=== PATIENT | female | born 1935 | race Caucasian/White ===

== ENCOUNTER 2024-05-08 17:34 | Inpatient (IN) | payer MEDICARE, BC, SELFPAY ==
[2024-05-08 10:33] VITALS: BP 110/70
--- NOTE | 2024-05-08 15:48 | W.PN.UPDATE ---
Update Note
Progress Note Update
Patient left trimalleolar ankle fracture with underlying dropfoot
-C/D/I
-CT pending
-Plan for ORIF with IM nail and arthroscopic ankle fusion 05/10/24, please have pateint NPO on 05/10/24 after 0700
-DAYRON LINARES
-Will follow
--- NOTE | 2024-05-08 16:25 | ED.GENMED ---
History of Present Illness
General
Chief Complaint: Musculo-Skeletal Complaint
Source: patient
Exam Limitations: none
Time Seen by Provider: 05/08/24 10:54
Nursing documentation reviewed up to this point in time: agreed with
History of Present Illness
History of Present Illness:
89-year-old female presenting to the emergency department today with concerns of left ankle discomfort unable to walk since twisting her ankle while getting out of bed today after doing her bed exercises. Typically lives independently at [facility]. No additional injuries no chest pain breath numbness or weakness.
Review of Systems
Review of Systems
Allergies reviewed?: Yes
All Other Systems: ROS reviewed and negative except as documented in HPI and ROS
Phy Exam
Physical Exam
Physical Exam:
GENERAL: Alert , in no apparent distress
EYE: pupils equal and reactive
NECK: Supple, no significant adenopathy.
ENT: o/p clr, mmm.
CARDIAC: Regular rate and rhythm .
LUNGS: Clear breath sounds bilaterally, no acute respiratory distress, no wheezes/rales/rhonchi
ABDOMEN: Soft, without focal tenderness, no r/g, no cvat
NEUROLOGICAL: Alert and oriented, no focal neuro deficits
SKIN: Warm and dry, skin intact.
MUSCULOSKELETAL: Significant swelling to the left lateral malleolus. Significant pain with movement of the ankle. Normal distal pulses and cap refill. No pain with squeeze of the tib-fib. Normal knee examination
PSYCH: Normal and appropriate interaction.
Course
Orders/Labs/Results
Orders:
Orders
05/08/24 10:37
Ankle, left 3 view CR [CR Ankle - Left Min 3 Views ] Urgent
Comment:
Reason For Exam: twisted left ankle while getting out of bed
05/08/24 14:57
Lower Ext Left wo Contrast CT [CT Lower Ext W/o Iv Cont Lt] Urgent
Comment:
Reason For Exam: left ankle fracture
05/08/24 16:18
BMP [Basic Metabolic Panel] Urgent
CBC/With Diff [Complete Blood Count/With Diff] Urgent
05/08/24 17:03
EKG [Electrocardiogram (*1)] Routine
Reason for Study: Atrial Fibrillation
Vital Signs
Initial and Last Documented VS:
Initial Vital Signs
Temp Pulse Resp BP Pulse Ox
98.1 F 60 16 110/70 98
05/08/24 10:33 05/08/24 10:33 05/08/24 10:33 05/08/24 10:33 05/08/24 10:33
Last Documented Vital Signs
Temp Pulse Resp BP Pulse Ox
98.1 F 60 16 110/70 98
05/08/24 10:33 05/08/24 10:33 05/08/24 10:33 05/08/24 10:33 05/08/24 10:33
Procedures
Splinting/Sling Placement
Left Ankle:
Procedure completed by: Myself
Pre-splint extermity exam: neurovascular intact
Type of splint: posterior short leg
Splint material: fiberglass
Splint checked by provider?: Yes
Normal distal neurovascular exam?: Yes
MDM/Problems Addressed
MDM/Problems Addressed:
89-year-old female presenting to the emergency department after injuring her left ankle. X-ray showing trimalleolar fracture. Case discussed with orthopedics they came and saw the patient. She was unable to ambulate safely therefore she was
admitted with likely surgical correction. Otherwise neurologically intact patient no distress throughout ER stay.
*Critical Care Note
Total Time (30-74mins, 75-104mins- exclusive of procedures): Not Applicable
ED Attending Note
-
Portions of this chart may have been created with voice recognition software.� Occasional wrong word or��sound alike� substitutions may have occurred due to the inherent limitations of voice recognition software.
Discharge Plan
Departure
Patient Disposition: Admit
Date of Disposition: 05/08/24
Time of Disposition: 17:06
Admit to: Med/Surg
Admit to doctor: Aziza
Presentation/result/management discussed w/ accepting MD/DO: Hospitalist
Patient with high blood pressure during this ER visit?: No
Condition: Good
Covid-19: Not Applicable
Discharge Problem:
Closed trimalleolar fracture
Referrals:
UNKNOWN - PT DOES,NOT KNOW [Family Provider] -
Interventions
Interventions:
*Risk Screen - Suicide Last Done: 05/08/24 10:33
*General Assessment Last Done: 05/08/24 12:40
*Neglect/Abuse Screening Last Done: 05/08/24 10:33
*ED COVID-19 Vaccine History Last Done: 05/08/24 12:40
ED-Musculoskeletal Assessment Last Done: 05/08/24 11:15
Discharge Date and Time
Print Language: CANADIAN
--- NOTE | 2024-05-08 16:28 | HPS.HSE ---
Family Physician
-
Family Physician: NOT KNOW UNKNOWN - PT DOES
Chief Complaint
-
Left ankle pain
History of Present Illness
Patient is an 89-year-old female with past medical history significant for atrial fibrillation, hypertension and hyperlipidemia who presented to [facility] for evaluation of left ankle pain. Patient states this morning she was doing her daily
exercises in bed and when she was finished and getting up she believes her foot got tangled in blankets and she fell out of bed. She denies hitting her head. Patient states she wears brace to LLE for underlying foot drop. Patient denies any
dizziness, fever, chills, cough, shortness of breath, chest pain, nausea, vomiting, constipation, diarrhea or urinary symptoms.
Medical History
Past Medical History
Past Medical History: Reports Other
Additional Past Medical History:
atrial fibrillation
hypertension
hyperlipidemia
Past Surgical History: Reports Other
Additional Past Surgical History:
appendectomy (1955)
Social History
Tobacco: Non-smoker
Personal: Single
Living: Alone
Employment: Retired
Family History
Family History: Not pertinent
Allergies / Home Medications
Allergies reflects when Allergies were last updated in [employer].
Home Medications with original date entered in [employer]
Allergy/Medication List:
Allergies
Allergy/AdvReac Type Severity Reaction Status Date / Time
.iv contrast Allergy Itching Uncoded 05/08/24 10:36
Home Medications
Various Supplements 1 tab PO DAILY 05/08/24
apixaban 5 mg tablet (Eliquis) 5 mg PO BID 05/08/24
aspirin 81 mg tablet,delayed release 81 mg PO HS 05/08/24
metoprolol succinate 50 mg tablet,extended release 24 hr 50 mg PO HS 05/08/24
rosuvastatin 10 mg tablet 10 mg PO HS 05/08/24
venlafaxine 75 mg capsule,extended release 24 hr 75 mg PO DAILY 05/08/24
Review of Systems
-
History Source: Patient
Constitutional: Reports No Symptoms
EENT: Reports No Symptoms
Respiratory: Reports No Symptoms
Cardiac: Reports No Symptoms
Abdomen/GI: Reports No Symptoms
: Reports No Symptoms
Musculoskeletal: Reports Other (left ankle discomfort and swelling)
Skin: Reports No Symptoms
Neurological: Reports No Symptoms
Endocrine: Reports No Symptoms
Hematologic/Lymphatic: Reports No Symptoms
Psych: Reports No Symptoms
Physical Exam
Vital Signs
Vital Signs
Temp Pulse Resp BP Pulse Ox
98.1 F 60 16 110/70 98
05/08/24 10:33 05/08/24 10:33 05/08/24 10:33 05/08/24 10:33 05/08/24 10:33
Physical Exam
General: Well Developed, Well Nourished, No Apparent Distress, Comfortable and Conversant
HEENT: NormoCephalic, Moist mucous membranes, Atraumatic, PERRLA, Nose Appears Normal and Ears Appear Normal
Respiratory: Clear, Non Labored Respirations and Decreased Breath Sounds; No Wheezes, Rales, Rhonchi or Crackles
Cardiac: S1/S2 and Regular Rhythm; No Murmur, Rub or Gallop
Breast: Deferred by me
GI: Soft, Non Tender, Non Distended and Normal Bowel Sounds; No Organomegaly
Rectal: Deferred by Provider
Genito-urinary: Deferred by me
Musculoskeletal: No Clubbing, No Cyanosis, Edema, Left Lower Extremity (Left ankle edema) and Other (left lower extremity in splint with observed edema)
Skin: Warm, Dry and IV/Catheter Site; No Rash
Neuro: Awake, Alert, AO x 3 and Nonfocal/grossly intact
Hematologic/Lymphatic: No Lymphadenopathy
Psych: Calm and Intact Judgment/Insight
Data Reviewed
-
Diagnostic Radiology: Report Reviewed by me (Left Ankle X-ray: Complex left ankle fracture with fractures involving the distal fibula, medial malleolus, with likely interruption of the syndesmosis with widening of the ankle mortise.)
CT Scan: Report Reviewed by me (LLE: 1. Acute nondisplaced fracture of the distal left fibular diaphysis superior to the level of the distal tibiofibular syndesmosis. 2. Acute displaced fracture of the medial malleolus. 3. Acute comminuted
intra-articular fracture of the posterior malleolus (posterior tibial plafond). etc.)
Impression/Plan
-
IMPRESSION/PLAN:
#trimalleolar fracture
- fall from bed, with LLE tangled in blanket
- X-Ray: Complex left ankle fracture with fractures involving the distal fibula, medial malleolus, with likely interruption of the syndesmosis with widening of the ankle mortise.
- CT: Pending
- Admit to telemetry
- Consult Podiatry
- Hold Eliquis
- NPO May 10 @ 0700 for surgery
#atrial fibrillation
- hold Eliquis
- continue metoprolol
#hypertension
- continue metoprolol
#hyperlipidemia
- continue rosuvastatin
Full Code
DVT Px: SCDs to RLE
--- NOTE | 2024-05-08 17:09 | W.PN.UPDATE ---
Update Note
Progress Note Update
This note serves as an addendum to the H&P by tomographic tech ALEXANDER Krystle Casas
HPI
89F Independent ADL at [facility] HX HTN, HLD, Prx AF, chr Eliquis pw Left ankle discomfort unable to walk since twisting her ankle while getting out of bed today after doing her bed exercises. T
No additional injuries no chest pain breath numbness or weakness.
Vital Signs
Temp Pulse Resp BP Pulse Ox
98.7 F 83 16 138/86 98
05/08/24 17:10 05/08/24 17:10 05/08/24 10:33 05/08/24 17:10 05/08/24 17:10
PE:
GENERAL:NAD
HEENT: No pallor
NECK: Supple, no significant adenopathy.
CARDIAC: RRR
LUNGS: CTA
ABDOMEN: Soft, without focal tenderness, no r/g, no cvat
NEUROLOGICAL: Alert and oriented, NFND
SKIN: Warm and dry, skin intact.
MUSCULOSKELETAL: Significant swelling to the left lateral malleolus. Significant pain with movement of the ankle. PSYCH: Normal and appropriate interaction.
Data: Pending
Ankle XR
Complex left ankle fracture with fractures involving the distal fibula, medial malleolus, with likely interruption of the syndesmosis with widening of the ankle mortise.
CT Lower Ext W/o Iv Cont Lt
1. Acute nondisplaced fracture of the distal left fibular diaphysis superior to the level of the distal tibiofibular syndesmosis.
2. Acute displaced fracture of the medial malleolus.
3. Acute comminuted intra-articular fracture of the posterior malleolus (posterior tibial plafond).
4. Acute intra-articular and mildly displaced fracture of the anterolateral tibial plafond.
5. Moderate lateral subluxation of the talar dome.
6. 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
7. Large calcaneal enthesophytes.
8. Severe medial soft tissue swelling and edema.
9. Severe muscle atrophy in the anterior and lateral muscle compartments of the left lower leg.
ASSESSMENT & PLAN
Acute left trimalleolar complex ankle Fx
HX Chr Lt foot drop dropfoot
- Last dose Eliquis 8am 05/08/24
- Ortho consulted
- Plan for ORIF with IM nail and arthroscopic ankle fusion 05/10/24
- NPO on 05/10/24 after 0700
- NWB LLE
- Fx set protocol
HX Prx AF
- check EKG'
- Hold Eliquis - Last dose Eliquis 8am 05/08/24
- ORIF on 05/10
Essential HTN
- c/w Metoprolol succinate
HLD on statin
DVT Px: SCD to Rt Leg
Full code
Ip TLM
[2024-05-08 17:10] VITALS: BP 138/86
[2024-05-08 17:23] LABS: % Basophils 0.4 % (0-2); % Eosinophils 2.2 % (0-6); % Immature Granulocytes 0.3 % (0-0.5); % Lymphocytes 12.1 % (20.5-51.1); % Monocytes 6.5 % (1.7-9.3); % Neutrophils 78.5 % (42.2-75.2); Absolute Eosinophils 0.2 10^3/uL (0-0.7); Absolute Lymphocytes 1.3 10^3/uL (1.2-3.4); Absolute Monocytes 0.7 10^3/uL (0.1-0.6); Absolute Neutrophils 8.3 10^3/uL (1.4-6.5); Hematocrit 41.3 % (37.0-47.0); Hemoglobin 13.9 g/dL (12.0-16.0); Mean Corp Hgb Conc. 33.7 g/dL (33.0-37.0); Mean Corpuscular Hgb 31.4 pg (27.0-31.0); Mean Corpuscular Volume 93.2 fL (81.0-99.0); Nucleated Red Blood Cells % 0 %; Platelet Count 249 10^3/uL (130-400); Red Blood Cell Count 4.43 10^6/uL (4.20-5.40); Red Cell Dist. Width 12.3 % (11.5-14.5); White Blood Cell Count 10.6 10^3/uL (4.8-10.8)
[2024-05-08 17:31] LABS: Blood Urea Nitrogen 20 mg/dl (7-17); Calcium 9.8 mg/dl (8.4-10.2); Carbon Dioxide 27 mmol/L (22-30); Chloride 103 mmol/L (98-107); Glucose 140 mg/dl (70-99); Sodium 142 mmol/L (135-145); eGFR > 60.00
[2024-05-08 18:15] VITALS: BP 185/72; BMI 25.8
--- NOTE | 2024-05-08 18:45 | PTCARENOTE ---
Patient arrived from ED. Here s/p fall at [facility]. Patient now has left ankle fracture, planned for OR on 05/10. Placed on telemetry per order, SR on monitor.
[2024-05-08 18:54] VITALS: BMI 25.8
[2024-05-08 19:16] VITALS: BP 176/68
[2024-05-08] MEDS: TYLENOL 650 MG PO (19:20)
[2024-05-08] MEDS: CRESTOR 10 MG PO (20:36)
[2024-05-08] MEDS: ASPIR LOW (ENTERIC COATED) 81 MG PO (20:37)
[2024-05-08] MEDS: ULTRAM 25 MG PO ×2 (20:37→22:35)
[2024-05-08] MEDS: TOPROL XL 50 MG PO (20:39)
[2024-05-08] MEDS: MELATONIN 5 MG PO (22:35)
[2024-05-08 23:10] VITALS: BP 156/57
[2024-05-09] VITALS (7 sets, daily range): BP systolic 143–170; BP diastolic 56–74; BMI 25.8
[2024-05-09] MEDS: ULTRAM 25 MG PO ×3 (04:44→17:04)
[2024-05-09 05:32] LABS: Hematocrit 38.3 % (37.0-47.0); Hemoglobin 12.6 g/dL (12.0-16.0); Mean Corp Hgb Conc. 32.9 g/dL (33.0-37.0); Mean Corpuscular Hgb 30.9 pg (27.0-31.0); Mean Corpuscular Volume 93.9 fL (81.0-99.0); Mean Platelet Volume 11.1 fL (7.4-10.4); Platelet Count 222 10^3/uL (130-400); Red Blood Cell Count 4.08 10^6/uL (4.20-5.40); Red Cell Dist. Width 12.5 % (11.5-14.5); White Blood Cell Count 9.9 10^3/uL (4.8-10.8)
[2024-05-09 06:01] LABS: Blood Urea Nitrogen 26 mg/dl (7-17); Calcium 9.4 mg/dl (8.4-10.2); Carbon Dioxide 26 mmol/L (22-30); Chloride 103 mmol/L (98-107); Estimated Creatinine Clearance 44 ml/min; Glucose 140 mg/dl (70-99); Potassium 4.6 mmol/L (3.5-5.1); Sodium 140 mmol/L (135-145); eGFR > 60.00
--- NOTE | 2024-05-09 07:13 | PTCARENOTE ---
0500 pt observed sleeping post pain med re-assessment . Assessment on going
[2024-05-09] MEDS: EFFEXOR XR 75 MG PO (07:52)
[2024-05-09] MEDS: TYLENOL 650 MG PO ×3 (07:55→22:09)
--- NOTE | 2024-05-09 10:44 | CM ---
CM met with pt bedside
Pt resides alone at [facility] [place] in an apartment
Elevator access, no steps
Pt is independent with her ADLs- no ADs
She has a WW available for use if needed
Pt does not drive and support available with son/Abdelrahman and DIL/Carlie
Pt denies financial insecurities
Pt has a drop-foot left foot and wears a daily brace
PCP- name unknown, rounds at facility
Rx- [facility] at [facility]
Pt with L ankle fx- plan for ORIF tomorrow 05/10
Will benefit from post-op PT/OT evals
Outpt vs VN vs SNF discussed
She is hopeful for outpt therapy on dc
In agreement with backup referral to [facility] if needed
Update to [facility]/admissions [phone] and referral sent to SNF via [facility]
Discharge Disposition- home with services vs SNF
--- NOTE | 2024-05-09 11:25 | W.PN.HOSP.TC ---
Addendum entered and electronically signed by Yu Valentin MD 05/09/24 17:45:
traumatic Trimalleolar fracture
Original Note:
Today's Communication/Plan
-
OR tomorrow
Assessment / Plan
Assessment / Plan
89-year-old female came with left ankle pain after fall from bed
CVS: S1-S2 normal
Chest: CTA B/L
Abdomen: Soft, NT , Bowel sounds present
Extremities: left leg in an immobilizer below knee, patient able to feel and move toes.
EKG sinus rhythm rate 57.
CT of the leg-acute nondisplaced fracture of the distal left fibular diaphysis superior to the level of the distal tibiofibular syndesmosis. Acute displaced fracture of the medial malleolus. Acute comminuted intra-articular fracture of the
posterior malleolus. Acute intra-articular and mildly displaced fracture of the anterolateral tibial plafond. Moderate lateral subluxation of the talar dome. 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 Large calcaneal
enthesophytes. Soft tissue swelling and edema. Muscle atrophy in the anterior and lateral compartments of the left lower leg.
# Trimalleolar fracture history of foot drop on the left foot from before
Traumatic fracture
X-ray with complex left ankle fracture involving distal fibula, medial malleolus with a likely interruption of the syndesmosis with widening of the ankle mortise.
CT-
Podiatry consulted
Surgery planned for 05/10/2024 after holding Eliquis
# Atrial fibrillation-hold Eliquis. Continue metoprolol. Restart Eliquis when okay from podiatry standpoint after surgery
# Hyperlipidemia-continue statin
# Hypertension-continue metoprolol
# Depression-continue venlafaxine
# SCDs for DVT prophylaxis-on the right
# Full code
Anticipated Discharge: 24 - 48 hours
Subjective/Interval History
-
Date of Service: May 09, 2024
Objective Data
-
Labs:
Laboratory Results
05/09/24
04:33
WBC 9.9
Hgb 12.6
Hct 38.3
Plt Count 222
Sodium 140
Potassium 4.6
Chloride 103
Carbon Dioxide 26
BUN 26 H
Creatinine 0.7
Glucose 140 H
Calcium 9.4
Vital Signs:
Vital Signs
Temp Pulse Resp BP Pulse Ox
98.4 F 58 20 170/68 94
05/09/24 07:30 05/09/24 07:30 05/09/24 07:30 05/09/24 07:30 05/09/24 07:30
I&O
05/08/24 05/09/24 05/10/24
06:59 06:59 06:59
Intake Total 480 / 480
Balance 480 / 480
--- NOTE | 2024-05-09 12:26 | PN.CDI ---
CDI
- -
CDI:
Physician Documentation Request
Admit Date: 05/08/24 17:34
Dear Doctor Homero,
Please review the following and provide your response in the progress notes.
Clinical Indicators:
H+P, 05/08
#...unable to walk since twisting her ankle while getting out of bed today
#...after doing her bed exercises.
#trimalleolar fracture
#...- fall from bed, with LLE tangled in blanket
#...- X-Ray: Complex left ankle fracture with fractures involving the distal fibula,
#...medial malleolus, with likely interruption of the syndesmosis with
#...widening of the ankle mortise.
Please clarify the following regarding the etiology of the left trimalleolar fracture:
Multifactorial, low level trauma and age related osteoporosis
Traumatic fracture only
Other, (please specify)
Type Fracture
Age-related With current pathological fx
Drug induced (specify drug) without current pathological fx
Idiopathic
Osteoporosis of disuse
Due to post surgical malabsorption
Post traumatic
Post oophorectomy osteoporosis
Use of terms such as suspected, likely, concern for, or probable (associated with a specific diagnosis that is being evaluated, monitored, or treated as if it exists) are acceptable and can be coded in the inpatient setting, when documented at the
time of discharge.
Thank you,
Lisbeth Ribeiro RN BSN CCDS
CDI Specialist
please contact via tiger text
Please use your independent medical judgment in providing your response.
[2024-05-09] MEDS: CRESTOR 10 MG PO (20:53)
[2024-05-09] MEDS: ASPIR LOW (ENTERIC COATED) 81 MG PO (20:53)
[2024-05-09] MEDS: TOPROL XL 50 MG PO (20:59)
[2024-05-10] VITALS (7 sets, daily range): BP systolic 133–178; BP diastolic 49–72
[2024-05-10] MEDS: ULTRAM 25 MG PO ×3 (01:16→17:13)
[2024-05-10 05:45] LABS: Hematocrit 37.7 % (37.0-47.0); Hemoglobin 12.2 g/dL (12.0-16.0); Mean Corp Hgb Conc. 32.4 g/dL (33.0-37.0); Mean Corpuscular Hgb 30.7 pg (27.0-31.0); Mean Corpuscular Volume 94.7 fL (81.0-99.0); Platelet Count 220 10^3/uL (130-400); Red Blood Cell Count 3.98 10^6/uL (4.20-5.40); Red Cell Dist. Width 12.4 % (11.5-14.5)
[2024-05-10 06:11] LABS: Blood Urea Nitrogen 16 mg/dl (7-17); Calcium 9.3 mg/dl (8.4-10.2); Carbon Dioxide 25 mmol/L (22-30); Chloride 101 mmol/L (98-107); Estimated Creatinine Clearance 51 ml/min; Glucose 129 mg/dl (70-99); Potassium 4.4 mmol/L (3.5-5.1); Sodium 136 mmol/L (135-145); eGFR > 60.00
--- NOTE | 2024-05-10 06:24 | PTCARENOTE ---
PT is in A-fib , hr55-65 jocelyn and manual b/p 150-160/60 , pt asymptomatic no c/o CP, Mag orders added to am lab per TOLL LINE INSPECTOR
[2024-05-10 07:03] LABS: Magnesium 1.9 mg/dl (1.6-2.3)
[2024-05-10] MEDS: EFFEXOR XR 75 MG PO (07:38)
--- NOTE | 2024-05-10 09:28 | W.PN.HOSP.TC ---
Today's Communication/Plan
-
NPO for OR today
pain control
Assessment / Plan
Assessment / Plan
89-year-old female came with left ankle pain after fall from bed
CVS: S1-S2 normal
Chest: CTA B/L
Abdomen: Soft, NT , Bowel sounds present
Extremities: left leg in an immobilizer below knee, patient able to feel and move toes.
EKG sinus rhythm rate 57.
CT of the leg-acute nondisplaced fracture of the distal left fibular diaphysis superior to the level of the distal tibiofibular syndesmosis. Acute displaced fracture of the medial malleolus. Acute comminuted intra-articular fracture of the
posterior malleolus. Acute intra-articular and mildly displaced fracture of the anterolateral tibial plafond. Moderate lateral subluxation of the talar dome. 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 Large calcaneal
enthesophytes. Soft tissue swelling and edema. Muscle atrophy in the anterior and lateral compartments of the left lower leg.
# Trimalleolar fracture history of foot drop on the left foot from before
Traumatic fracture
X-ray with complex left ankle fracture involving distal fibula, medial malleolus with a likely interruption of the syndesmosis with widening of the ankle mortise.
CT-
Podiatry consulted
Surgery planned for 05/10/2024 after holding Eliquis
# Atrial fibrillation-hold Eliquis. Continue metoprolol. Restart Eliquis when okay from podiatry standpoint after surgery
# Hyperlipidemia-continue statin
# Hypertension-continue metoprolol
# Depression-continue venlafaxine
# SCDs for DVT prophylaxis-on the right
# Full code
Anticipated Discharge: 24 - 48 hours
Subjective/Interval History
-
Date of Service: May 10, 2024
seen before surgery
no chest pain or shortness of breath
Objective Data
-
Labs:
Laboratory Results
05/10/24
04:25
WBC 8.0
Hgb 12.2
Hct 37.7
Plt Count 220
Sodium 136
Potassium 4.4
Chloride 101
Carbon Dioxide 25
BUN 16
Creatinine 0.6
Glucose 129 H
Calcium 9.3
Vital Signs:
Vital Signs
Temp Pulse Resp BP Pulse Ox
98.3 F 61 20 178/72 95
05/10/24 08:01 05/10/24 08:01 05/10/24 08:01 05/10/24 08:01 05/10/24 08:01
I&O
05/09/24 05/10/24 05/11/24
06:59 06:59 06:59
Intake Total 480 / 480 1520 / 1520
Balance 480 / 480 1520 / 1520
Review of Systems
-
History Source: Patient
All other systems: Reviewed and negative
Physical Exam
-
General: No Apparent Distress
HEENT: PERRLA
Respiratory: Clear to Auscultation; Negative Wheezes
Cardiac: Regular Rhythm and S1/S2
GI: Soft and Nontender
Musculoskeletal: No Edema and Other (left foot wrapped )
Skin: Warm and Dry; Negative Rash
Neuro: AO x 3
Psych: Calm
Data Reviewed
-
Diagnostic Radiology: Report Reviewed by me
Labs: Labs Reviewed by me
--- NOTE | 2024-05-10 10:27 | CM ---
Chart reviewed
For OR today for repair of ankle fracture
PT eval posy-op pending
Plan - TBD post-operatively. CM will follow - home with PT vs SNF
--- NOTE | 2024-05-10 16:57 | W.PN.SURGUPD ---
Surgical Update
Surgical Update
89 yo F with unstable left ankle fracture requiring surgical fixation
-Plan for left ankle ORIF with IM nail on 05/11
-Please continue to hold eliquis
-Patient to be NPO after 7:00AM on 05/11
-Consent obtained
-Pain control per primary team
[2024-05-10] MEDS: CRESTOR 10 MG PO (21:18)
[2024-05-10] MEDS: TOPROL XL 50 MG PO (21:18)
[2024-05-10] MEDS: ASPIR LOW (ENTERIC COATED) 81 MG PO (21:18)
[2024-05-11] VITALS (14 sets, daily range): BP systolic 91–181; BP diastolic 39–71
[2024-05-11 05:50] LABS: Hematocrit 39.8 % (37.0-47.0); Hemoglobin 13.1 g/dL (12.0-16.0); Mean Corp Hgb Conc. 32.9 g/dL (33.0-37.0); Mean Corpuscular Hgb 31.4 pg (27.0-31.0); Mean Corpuscular Volume 95.4 fL (81.0-99.0); Platelet Count 223 10^3/uL (130-400); Red Blood Cell Count 4.17 10^6/uL (4.20-5.40); Red Cell Dist. Width 12.3 % (11.5-14.5); White Blood Cell Count 7.7 10^3/uL (4.8-10.8)
[2024-05-11 06:11] LABS: Blood Urea Nitrogen 23 mg/dl (7-17); Calcium 9.3 mg/dl (8.4-10.2); Carbon Dioxide 27 mmol/L (22-30); Chloride 98 mmol/L (98-107); Estimated Creatinine Clearance 44 ml/min; Glucose 122 mg/dl (70-99); Potassium 4.8 mmol/L (3.5-5.1); Sodium 137 mmol/L (135-145); eGFR > 60.00
[2024-05-11] MEDS: EFFEXOR XR 75 MG PO (08:56)
[2024-05-11] MEDS: TYLENOL 650 MG PO (08:56)
[2024-05-11] MEDS: APRESOLINE 5 MG IV (08:56)
--- NOTE | 2024-05-11 09:28 | W.PN.HOSP.TC ---
Today's Communication/Plan
-
NPO for OR
Assessment / Plan
Assessment / Plan
89-year-old female came with left ankle pain after fall from bed
CVS: S1-S2 normal
Chest: CTA B/L
Abdomen: Soft, NT , Bowel sounds present
Extremities: left leg in an immobilizer below knee, patient able to feel and move toes.
EKG sinus rhythm rate 57.
CT of the leg-acute nondisplaced fracture of the distal left fibular diaphysis superior to the level of the distal tibiofibular syndesmosis. Acute displaced fracture of the medial malleolus. Acute comminuted intra-articular fracture of the
posterior malleolus. Acute intra-articular and mildly displaced fracture of the anterolateral tibial plafond. Moderate lateral subluxation of the talar dome. 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 Large calcaneal
enthesophytes. Soft tissue swelling and edema. Muscle atrophy in the anterior and lateral compartments of the left lower leg.
# Trimalleolar fracture history of foot drop on the left foot from before
Traumatic fracture
X-ray with complex left ankle fracture involving distal fibula, medial malleolus with a likely interruption of the syndesmosis with widening of the ankle mortise.
CT-
Podiatry consulted
Surgery planned for later today (emergency in OR yesterday)
# Atrial fibrillation-hold Eliquis. Continue metoprolol. Restart Eliquis when okay from podiatry standpoint after surgery
# Hyperlipidemia-continue statin
# Hypertension-continue metoprolol
# Depression-continue venlafaxine
# SCDs for DVT prophylaxis-on the right
# Full code
Anticipated Discharge: 24 - 48 hours
Subjective/Interval History
-
Date of Service: May 11, 2024
awaiting surgery
Objective Data
-
Labs:
Laboratory Results
05/11/24
04:33
WBC 7.7
Hgb 13.1
Hct 39.8
Plt Count 223
Sodium 137
Potassium 4.8
Chloride 98
Carbon Dioxide 27
BUN 23 H
Creatinine 0.7
Glucose 122 H
Calcium 9.3
Vital Signs:
Vital Signs
Temp Pulse Resp BP Pulse Ox
98.3 F 63 15 181/69 96
05/11/24 07:20 05/11/24 07:20 05/11/24 07:20 05/11/24 07:20 05/11/24 07:20
I&O
05/10/24 05/11/24 05/12/24
06:59 06:59 06:59
Intake Total 1520 / 1520 640 / 640
Balance 1520 / 1520 640 / 640
Review of Systems
-
History Source: Patient
All other systems: Reviewed and negative
Physical Exam
-
General: No Apparent Distress
HEENT: PERRLA
Respiratory: Clear to Auscultation; Negative Wheezes
Cardiac: Regular Rhythm and S1/S2
GI: Soft and Nontender
Musculoskeletal: No Edema and Other (left foot wrapped )
Skin: Warm and Dry; Negative Rash
Neuro: AO x 3
Psych: Calm
Data Reviewed
-
Diagnostic Radiology: Report Reviewed by me
Labs: Labs Reviewed by me
--- NOTE | 2024-05-11 11:48 | CM ---
Chart reviewed
NPO
For OR today for repair of ankle fracture
PT eval posy-op pending
From KYLEE at [facility] - updates sent in [facility]
Plan - TBD post-operatively. CM will follow - home with PT vs SNF
--- NOTE | 2024-05-11 18:52 | W.PN.UPDATE ---
Update Note
Progress Note Update
s/p Left Arthroscopic ankle fusion with intramedullary nail for Ankle ORIF and dropfoot repair
-NWB LLE
-Dressings C/D/I, may have wound care change once per week
-Ancef x 3 doses
-PT/OT
-Pain control
-Follow up 2 weeks
-Okay for DC per podiatry/orthopedics
[2024-05-11] MEDS: CRESTOR 10 MG PO (21:44)
[2024-05-11] MEDS: ASPIR LOW (ENTERIC COATED) 81 MG PO (21:44)
[2024-05-11] MEDS: TOPROL XL 50 MG PO (21:47)
[2024-05-11] MEDS: ANCEF 5 IV (23:36)
[2024-05-12] VITALS (9 sets, daily range): BP systolic 127–153; BP diastolic 54–67; PULSE 83; O2SAT 93–94
[2024-05-12] MEDS: ANCEF 5 IV ×3 (06:21→22:15)
[2024-05-12 06:53] LABS: Blood Urea Nitrogen 27 mg/dl (7-17); Calcium 8.9 mg/dl (8.4-10.2); Carbon Dioxide 21 mmol/L (22-30); Chloride 99 mmol/L (98-107); Estimated Creatinine Clearance 44 ml/min; Glucose 134 mg/dl (70-99); Potassium 4.6 mmol/L (3.5-5.1); Sodium 136 mmol/L (135-145); eGFR > 60.00
[2024-05-12 07:03] LABS: Hematocrit 38.7 % (37.0-47.0); Hemoglobin 12.6 g/dL (12.0-16.0); Mean Corp Hgb Conc. 32.6 g/dL (33.0-37.0); Mean Corpuscular Hgb 30.8 pg (27.0-31.0); Mean Corpuscular Volume 94.6 fL (81.0-99.0); Mean Platelet Volume 11.1 fL (7.4-10.4); Platelet Count 285 10^3/uL (130-400); Red Blood Cell Count 4.09 10^6/uL (4.20-5.40); Red Cell Dist. Width 12.5 % (11.5-14.5)
--- NOTE | 2024-05-12 09:50 | W.PN.HOSP.TC ---
Addendum entered and electronically signed by Bettie Polanco MD 05/12/24 09:56:
OK to resume Eliquis tomorrow per Podiatry
Original Note:
Today's Communication/Plan
-
PT/OT - anticipate SNF today or tomorrow
confirming with Dr. Bishop when OK to resume Eliquis
Assessment / Plan
Assessment / Plan
89-year-old female came with left ankle pain after fall from bed
CVS: S1-S2 normal
Chest: CTA B/L
Abdomen: Soft, NT , Bowel sounds present
Extremities: left leg in an immobilizer below knee, patient able to feel and move toes.
EKG sinus rhythm rate 57.
CT of the leg-acute nondisplaced fracture of the distal left fibular diaphysis superior to the level of the distal tibiofibular syndesmosis. Acute displaced fracture of the medial malleolus. Acute comminuted intra-articular fracture of the
posterior malleolus. Acute intra-articular and mildly displaced fracture of the anterolateral tibial plafond. Moderate lateral subluxation of the talar dome. 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 Large calcaneal
enthesophytes. Soft tissue swelling and edema. Muscle atrophy in the anterior and lateral compartments of the left lower leg.
# Trimalleolar fracture history of foot drop on the left foot from before
Traumatic fracture
X-ray with complex left ankle fracture involving distal fibula, medial malleolus with a likely interruption of the syndesmosis with widening of the ankle mortise.
appreciate Podiatry
s/p Left Arthroscopic ankle fusion with intramedullary nail for Ankle ORIF and dropfoot repair 05/11/24
PT/OT - NWB LLE
Dressings C/D/I, may have wound care change once per week
-Ancef x 3 doses
-F/U with Dr. Bishop in 2 weeks
-anticipate DC to SNF today or tomorrow
# Atrial fibrillation
-*texted Dr. Bishop to see when OK to resume Eliquis
- Continue metoprolol
# Hyperlipidemia-continue statin
# Hypertension-continue metoprolol
# Depression-continue venlafaxine
# SCDs for DVT prophylaxis-on the right
# Full code
Anticipated Discharge: Within 24 hours
Subjective/Interval History
-
Date of Service: May 12, 2024
pain better controlled post-op
has not yet got up with PT
Objective Data
-
Labs:
Laboratory Results
05/12/24
04:20
WBC 11.0 H
Hgb 12.6
Hct 38.7
Plt Count 285 D
Sodium 136
Potassium 4.6
Chloride 99
Carbon Dioxide 21 L
BUN 27 H
Creatinine 0.7
Glucose 134 H
Calcium 8.9
Vital Signs:
Vital Signs
Temp Pulse Resp BP Pulse Ox
98.6 F 74 16 153/56 94
05/12/24 07:10 05/12/24 07:10 05/12/24 07:10 05/12/24 07:10 05/12/24 07:10
I&O
05/11/24 05/12/24 05/13/24
06:59 06:59 06:59
Intake Total 640 / 640 870 / 870
Output Total 1450 / 1450
Balance 640 / 640 -580 / -580
Review of Systems
-
History Source: Patient
All other systems: Reviewed and negative
Physical Exam
-
General: No Apparent Distress
HEENT: PERRLA
Respiratory: Clear to Auscultation; Negative Wheezes
Cardiac: Regular Rhythm and S1/S2
GI: Soft and Nontender
Musculoskeletal: No Edema and Other (left foot with cast )
Skin: Warm and Dry; Negative Rash
Neuro: AO x 3
Psych: Calm
Data Reviewed
-
Diagnostic Radiology: Report Reviewed by me
Labs: Labs Reviewed by me
[2024-05-12] MEDS: EFFEXOR XR 75 MG PO (10:02)
[2024-05-12] MEDS: ULTRAM 50 MG PO (10:10)
--- NOTE | 2024-05-12 13:35 | PTCARENOTE ---
pt removed tele earlier currently refusing to replace. NSR could be removed but is on Hydralazine PRN. notified Dr. Polanco. attempted to place again refused. will retry. Current BP 137
--- NOTE | 2024-05-12 14:08 | CM ---
Addendum entered by Caridad Reis 05/12/24 15:17:
Spoke with pts son Abdelrahman. Discussed PT/OT recs for SNF. Aware [facility] can accept tomorrow. Agrees with plan
Dr Polanco aware pt accepted at [facility]
Transport arranged for 11AM - TT sent to Dr Polanco
Plan - transfer to [facility] tomorrow
Original Note:
Chart reviewed and met with pt
Per Dr Polanco - pt for discharge tomorrow
PT/OT recs - SNF
Spoke with Ana Cristina at the [facility] - can accept tomorrow
Will need Covid prior to d/c
Ana Cristina available over weekend for updates
Called pt son to discuss d/c plan - LM on requesting call back
Plan - transfer to the [facility] tomorrow
R - [phone]
F - [phone]
[2024-05-12 15:27] LABS: COVID-19 Antigen Negative (Negative)
--- NOTE | 2024-05-12 15:33 | W.PN.SURGUPD ---
Surgical Update
Surgical Update
s/p Left Arthroscopic ankle fusion with intramedullary nail for Ankle ORIF and dropfoot repair 05/12/2024
-NWB LLE
-Dressings C/D/I, may have wound care change once per week
-Ancef while inhouse
-PT/OT
-Pain control
-Follow up 2 weeks at [facility]
-Okay for DC per podiatry/orthopedics
[2024-05-12] MEDS: ASPIR LOW (ENTERIC COATED) 81 MG PO (22:15)
[2024-05-12] MEDS: CRESTOR 10 MG PO (22:15)
[2024-05-12] MEDS: TOPROL XL 50 MG PO (22:17)
[2024-05-13 03:20] VITALS: BP 148/64
[2024-05-13 07:33] VITALS: BP 171/74
[2024-05-13] MEDS: EFFEXOR XR 75 MG PO (08:10)
[2024-05-13] MEDS: TYLENOL 650 MG PO (08:11)
--- NOTE | 2024-05-13 09:21 | W.PN.HOSP.TC ---
Today's Communication/Plan
-
DC today
Assessment / Plan
Assessment / Plan
89-year-old female came with left ankle pain after fall from bed
CVS: S1-S2 normal
Chest: CTA B/L
Abdomen: Soft, NT , Bowel sounds present
Extremities: left leg in an immobilizer below knee, patient able to feel and move toes.
EKG sinus rhythm rate 57.
CT of the leg-acute nondisplaced fracture of the distal left fibular diaphysis superior to the level of the distal tibiofibular syndesmosis. Acute displaced fracture of the medial malleolus. Acute comminuted intra-articular fracture of the
posterior malleolus. Acute intra-articular and mildly displaced fracture of the anterolateral tibial plafond. Moderate lateral subluxation of the talar dome. 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 Large calcaneal
enthesophytes. Soft tissue swelling and edema. Muscle atrophy in the anterior and lateral compartments of the left lower leg.
# Trimalleolar fracture history of foot drop on the left foot from before
Traumatic fracture
X-ray with complex left ankle fracture involving distal fibula, medial malleolus with a likely interruption of the syndesmosis with widening of the ankle mortise.
appreciate Podiatry
s/p Left Arthroscopic ankle fusion with intramedullary nail for Ankle ORIF and dropfoot repair 05/11/24
PT/OT - NWB LLE
Dressings C/D/I, may have wound care change once per week
-s/p Ancef x 3 doses
-F/U with Dr. Bishop in 2 weeks
-anticipate DC to SNF today or tomorrow
# Atrial fibrillation
-*texted Dr. Bishop to see when OK to resume Eliquis
- Continue metoprolol
# Hyperlipidemia-continue statin
# Hypertension-continue metoprolol
# Depression-continue venlafaxine
# SCDs for DVT prophylaxis-on the right
# Full code
Anticipated Discharge: Today
Subjective/Interval History
-
Date of Service: May 13, 2024
feeling well this morning and feels ready to go to
Objective Data
-
Vital Signs:
Vital Signs
Temp Pulse Resp BP Pulse Ox
99.5 F 76 14 171/74 95
05/13/24 07:33 05/13/24 07:33 05/13/24 07:33 05/13/24 07:33 05/13/24 07:33
I&O
05/12/24 05/13/24 05/14/24
06:59 06:59 06:59
Intake Total 870 / 870 1620 / 1620
Output Total 1450 / 1450
Balance -580 / -580 1620 / 1620
Review of Systems
-
History Source: Patient
All other systems: Reviewed and negative
Physical Exam
-
General: No Apparent Distress
HEENT: PERRLA
Respiratory: Clear to Auscultation; Negative Wheezes
Cardiac: Regular Rhythm and S1/S2
GI: Soft and Nontender
Musculoskeletal: No Edema and Other (left foot with cast )
Skin: Warm and Dry; Negative Rash
Neuro: AO x 3
Psych: Calm
Data Reviewed
-
Diagnostic Radiology: Report Reviewed by me
Labs: Labs Reviewed by me
--- NOTE | 2024-05-13 09:44 | W.DS.TRANS ---
DC Summary - Rn Lvn
-
Discharge Instructions:
Sleep Apnea Risk Intermediate
Discharge Diagnosis/Procedures Trimalleolar ankle fracture with prior foot drop
; Left arthroscopic ankle fusion with subtalar
joint arthrodesis and intramedullary nail with
ORIF of trimalleolar ankle fracture and stress
exam under anesthesia.
Diet Regular
Additional Activity NWB LLE
Driving Restrictions No driving
Bathing Restrictions None
Other Services PT,OT
Instructions:
Stand-Alone Forms:
Changes to Home Medications: Yes
Discharge Medications:
DC Medications w/original date entered in [employer]
Various Supplements 1 tab PO DAILY Supplement 05/08/24
apixaban 5 mg tablet (Eliquis) 5 mg PO BID Blood Clot Prevention/Tx 05/08/24
metoprolol succinate 50 mg tablet,extended release 24 hr 50 mg PO HS Blood Pressure 05/08/24
rosuvastatin 10 mg tablet 10 mg PO HS High Cholesterol 05/08/24
venlafaxine 75 mg capsule,extended release 24 hr 75 mg PO DAILY Mental Health/Anxiety 05/08/24
tramadol 50 mg tablet 25 mg (1/2 x 50 mg) PO Q6HPRN PRN moderate pain #15 tabs 05/13/24
tramadol 50 mg tablet 50 mg PO Q6HPRN PRN severe pain #15 tabs 05/13/24
Home Medication Changes
stop aspirin
new script for Tramadol
Pending Results: No
[2024-05-13] MEDS: ELIQUIS 5 MG PO (10:23)
--- NOTE | 2024-05-13 10:24 | CM ---
CM following re: d/c planning.
D/c plan is for transfer to [facility] today at 1100.
Med team aware. CM confirmed with Ana Cristina @ [facility].
CM met with pt at bedside, she is aware of the plan.
She is contacting son.
Covid test results faxed and copy in d/c packet.
R - [phone]
F - [phone]
[2024-05-13 11:12] VITALS: BP 142/50
--- NOTE | 2024-05-13 14:01 | W.DCSUMMARY ---
Discharge Summary
Discharge Data
Date of Admission: 05/08/24
Date of Discharge: 05/13/24
-
Pending Results: No
Hospital Course
Discharging Physician : Dr. Bettie Polanco
Disposition : SNF
Principal Discharge diagnosis : Trimalleolar ankle fracture with prior foot drop; Left arthroscopic ankle fusion with subtalar joint arthrodesis and intramedullary nail with ORIF of trimalleolar ankle fracture and stress exam under anesthesia.
Hospital Course :
Ms. Tamar Howard is a 89 yo woman with hx atrial fibrillation, HTN, HLD, Depression presents to the ER post fall with left ankle pain found to have a complex left ankle fracture. She was admitted to medicine with Podiatry consulting and
underwent surgery post Eliquis wash out. She did well post-op. Eliquis resumed today per Podiatry recommendations. She is discharged to SNF with instructions of DAYRON LINARES. She will follow up with Podiatry in 1-2 weeks.
Time spent on discharge was 32 minutes.
Important imaging findings :
05/08/24
X-RaY
IMPRESSION:
Complex left ankle fracture with fractures involving the distal fibula, medial malleolus, with likely interruption of the syndesmosis with widening of the ankle mortise.
CT
IMPRESSION:
1. Acute nondisplaced fracture of the distal left fibular diaphysis superior to the level of the distal tibiofibular syndesmosis.
2. Acute displaced fracture of the medial malleolus.
3. Acute comminuted intra-articular fracture of the posterior malleolus (posterior tibial plafond).
4. Acute intra-articular and mildly displaced fracture of the anterolateral tibial plafond.
5. Moderate lateral subluxation of the talar dome.
6. 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
7. Large calcaneal enthesophytes.
8. Severe medial soft tissue swelling and edema.
9. Severe muscle atrophy in the anterior and lateral muscle compartments of the left lower leg.
Procedure findings :
05/11/24
PROCEDURE PERFORMED: Left arthroscopic ankle fusion with subtalar
joint arthrodesis and intramedullary nail with ORIF of trimalleolar
ankle fracture and stress exam under anesthesia.
Discharge Plan
-
Patient Disposition: Shelter/SNF
Discharge Diagnosis/Procedures: Trimalleolar ankle fracture with prior foot drop; Left arthroscopic ankle fusion with subtalar joint arthrodesis and intramedullary nail with ORIF of trimalleolar ankle fracture and stress exam under anesthesia.
Diet: Regular
Additional Activity: NWB LLE
Driving Restrictions: No driving
Bathing Restrictions: None
Other Services: PT and OT
Referrals:
Daniel Jordan MD [Active] - in one to two weeks
UNKNOWN - PT DOES,NOT KNOW [Family Provider] - in less than 1 week
Additional Discharge Medication Instructions: You are prescribed Tramadol to help with pain
OK to stop aspirin as you are on Eliquis, and taking both together increases bleeding risk. Please discuss this further with your PCP.
Prescriptions:
New
tramadol 50 mg Tablet
25 mg PO Q6HPRN PRN (Reason: moderate pain) Qty: 15 0RF
tramadol 50 mg Tablet
50 mg PO Q6HPRN PRN (Reason: severe pain) Qty: 15 0RF
Continued
venlafaxine 75 mg capsule,extended release 24hr
75 mg PO DAILY
metoprolol succinate 50 mg tablet extended release 24 hr
50 mg PO HS
rosuvastatin 10 mg tablet
10 mg PO HS
Eliquis 5 mg tablet
5 mg PO BID
Various Supplements
1 tab PO DAILY
Discontinued
aspirin 81 mg Tablet,Delayed Release (Dr/Ec)
81 mg PO HS
Discharge Orders:
Discharge Patient (As Directed); Ordered 05/13/24
Ordered By: Bettie L. Polanco
Discharge Date and Time
Discharge Date/Time: 05/13/24 11:40
Print Language: CYMRAES
== END 2024-05-13 11:40 | DRG 494 ==
LOC: 2 SOUTH 17:34
PROVIDERS: Nurse Practitioner Family; Physician Assistant; ADMITTING PHYSICIAN Internal Medicine; ATTENDING PHYSICIAN Student in an Organized Health Care Education/Training Program; CONSULT PHYSICIAN Student in an Organized Health Care Education/Training Program; EMERGENCY PHYSICIAN Emergency Medicine
PROC: 0SGG44Z Fusion of Left Ankle Joint with Internal Fixation Device, Percutaneous Endoscopic Approach (ICD-10-PCS; 2024-05-11)
PROC: 0SG Lower Joints, Fusion (ICD-10-PCS; 2024-05-11)
DX: S82.852A Displaced trimalleolar fracture of left lower leg, initial encounter for closed fracture (principal); I10 Essential (primary) hypertension; E78.5 Hyperlipidemia, unspecified; I48.91 Unspecified atrial fibrillation; M19.072 Primary osteoarthritis, left ankle and foot; M21.372 Foot drop, left foot; F32.A Depression, unspecified; Z79.01 Long term (current) use of anticoagulants; Z79.82 Long term (current) use of aspirin; Z79.899 Other long term (current) drug therapy; W01.0XXA Fall on same level from slipping, tripping and stumbling without subsequent striking against object, initial encounter; Z91.041 Radiographic dye allergy status
CPT/HCPCS: 29515; 73610; 73700; 76000; 80048; 83735; 85025; 85027; 87811; 93005; 97163; 97167; 99285; C1713; C1769

== ENCOUNTER 2025-05-09 23:35 | Inpatient (IN) | payer MEDICARE, BC, SELFPAY ==
[2025-05-09 17:51] VITALS: BP 189/68
[2025-05-09 18:26] LABS: Hematocrit 41.3 % (37.0-47.0); Hemoglobin 14.0 g/dL (12.0-16.0); Mean Corp Hgb Conc. 33.9 g/dL (33.0-37.0); Mean Corpuscular Volume 89.8 fL (81.0-99.0); Nucleated Red Blood Cells % 0 %; Platelet Count 262 10^3/uL (130-400); Red Cell Dist. Width 13.0 % (11.5-14.5)
[2025-05-09 18:40] LABS: COVID-19 Antigen Negative (Negative)
[2025-05-09 18:42] LABS: ALT (SGPT) 24 U/L (0-35); AST (SGOT) 33 U/L (14-36); Albumin 4.8 g/dl (3.5-5.0); Alkaline Phosphatase 65 U/L (38-126); Blood Urea Nitrogen 20 mg/dl (7-17); Calcium 9.5 mg/dl (8.4-10.2); Carbon Dioxide 26 mmol/L (22-30); Chloride 94 mmol/L (98-107); Glucose 158 mg/dl (70-99); Potassium 4.3 mmol/L (3.5-5.1); Sodium 131 mmol/L (135-145); Total Protein 7.8 g/dl (6.3-8.2); eGFR > 60.00
--- NOTE | 2025-05-09 18:58 | ED.GENMED ---
History of Present Illness
General
Chief Complaint: Change in Mental Status
Source: patient and family
Exam Limitations: altered mental status
Time Seen by Provider: 05/09/25 18:28
Nursing documentation reviewed up to this point in time: agreed with
History of Present Illness
History of Present Illness:
89-year-old female from [facility] presents with confusion and fever was at [birth year] birthday yesterday acting normally lives in independent living ambulates well at baseline no reported falls apparently was found unclothed in her bed
Phy Exam
Physical Exam
Physical Exam:
Physical Exam
General: Febrile lethargic female decreased responsiveness no overt signs head or neck trauma
Neck: No tongue bite
Heart: Tachycardia
Lungs: Shallow resp
Abdomen: Nontender
Neuro: Confused, eyes open, appears to move all extremities
Skin: no rash
Psychiatric: Delirious,
Extremities: No lower extremity edema
Course
Orders/Labs/Results
Orders:
Orders
05/09/25 18:10
Electrocardiogram (*1) Urgent
Reason for Study: Other
Other Reason for Exam: Possible Sepsis
Cardiac Monitoring- Treatment ONCE
Straight cath- Treatment ONCE
05/09/25 18:11
EKG- Treatment ONCE
05/09/25 18:13
Complete Blood Count/With Diff Urgent
Comprehensive Metabolic Panel Urgent
Lactic Acid Q4H
Comment: ON ICE, CANCEL 2ND ORDER IF FIRST LACTIC ACID LEVEL <2
Urinalysis Reflex To Culture Urgent
Date Specimen was Collected: 05/09/25
Time Specimen was Collected: 18:11
Urine Microscopic Reflex Cult Urgent
Blood Culture Q20M
JENNIFER Source: Blood/Venous
Specimen Description:
Comment: Urgent from separate sites. If patient screens positive for possible sepsis
Urine Culture Urgent
JENNIFER Source: U
Specimen Description:
Date Specimen was Collected: 05/09/25
Time Specimen was Collected: 18:11
05/09/25 18:14
COVID-19 Antigen Urgent
Source: Nasal Swab
Influenza A+B Rapid Molecular Urgent
JENNIFER Source: Nasal Swab
Specimen Description:
05/09/25 18:25
Acetaminophen [Tylenol] 650 mg .ROUTE .STK-MED ONE
05/09/25 18:28
Acetaminophen [Tylenol] 650 mg PO NOW STA
05/09/25 18:42
0.9% Sodium Chloride 1000 ml [Nss] 1,000 ml IV BOLUS
CR Chest Portable - 1 View Urgent
Comment:
Reason For Exam: fever
Reason Study Needs to be Portable: Patient Unstable
05/09/25 18:46
Acetaminophen 1000MG/100Ml [Ofirmev] 1,000 mg in 100 ml IV ONCE
Acetaminophen IV Indication:: ED Narcotic Naive Pt-ONCE
05/09/25 18:59
CT Head W/o Iv Contrast Urgent
Comment:
Reason For Exam: Stupor
05/09/25 19:54
CefTRIAXone [Rocephin] 1,000 mg IV NOW STA
05/09/25 19:55
CT Abd/pel Without Iv Or Oral Urgent
Comment:
Reason For Exam: Fever hematuria
05/09/25 19:59
Sterile Water [Sterile Water For Injection] 10 ml .ROUTE .STK-MED ONE
05/09/25 20:06
Blood Culture Q20M
JENNIFER Source: Blood/Venous
Specimen Description:
Comment: Urgent from separate sites. If patient screens positive for possible sepsis
05/09/25 21:43
Add On- LAB Urgent
Tests Added?: Urine culture
Abnormal Lab Results
05/09/25
18:13
WBC 12.3 H 10^3/uL
(4.8-10.8)
MPV 10.5 H fL
(7.4-10.4)
Abs Immat Gran (auto) 0.1 H 10^3/uL
(0-0.05)
Absolute Neuts (auto) 10.8 H 10^3/uL
(1.4-6.5)
Absolute Lymphs (auto) 0.9 L 10^3/uL
(1.2-3.4)
Neutrophils % 87.9 H %
(42.2-75.2)
Lymphocytes % 7.2 L %
(20.5-51.1)
Sodium 131 L mmol/L
(135-145)
Chloride 94 L mmol/L
(98-107)
BUN 20 H mg/dl
(7-17)
Glucose 158 H mg/dl
(70-99)
Urine Ketones 3+ A
(Negative)
Ur Occult Blood Reflex 3+ A
(Negative)
Urine RBC 16-20 A /HPF
(0-2)
Urine Bacteria (Reflex) Moderate A
(Negative)
Urine Albumin (Reflex) 3+ A
(Neg - Trace)
05/09/25 18:13
05/09/25 18:13
Vital Signs
Initial and Last Documented VS:
Initial Vital Signs
Temp Pulse Resp BP Pulse Ox
101.1 F H 80 17 189/68 93
05/09/25 17:51 05/09/25 17:51 05/09/25 17:51 05/09/25 17:51 05/09/25 17:51
Last Documented Vital Signs
Temp Pulse Resp BP Pulse Ox
101.7 F H 72 20 145/44 97
05/09/25 19:48 05/09/25 21:00 05/09/25 21:09 05/09/25 21:00 05/09/25 21:50
MDM/Problems Addressed
Differential Diagnosis Includes:
Delirium infection UTI pneumonia influenza COVID conceivably intracerebral hemorrhage, electrolyte abnormality
MDM/Problems Addressed:
Acute confusional state fever
Chronic conditions affecting care: HTN and Arrhythmia
Acute Exacerbation and/or Progression of Chronic Illness: HTN and Arrhythmia
*Pulse Oximetry
SaO2: 93
Oxygen Mode of Delivery: Room air
Patient hypoxic: no
*Critical Care Note
Total Time (30-74mins, 75-104mins- exclusive of procedures): 21
Update Note
Update Note:
7:55 PM labs noted urine noted chest x-ray noted CT of the head noted no clear source of infection now does have hematuria we will start on antibiotics check urine culture check CT to rule out urinary obstruction
10:[address] noted, cultures are pending patient will require admission for delirium possible bacteremia source not entirely clear
ED Attending Note
-
Portions of this chart may have been created with voice recognition software.� Occasional wrong word or��sound alike� substitutions may have occurred due to the inherent limitations of voice recognition software.
Discharge Plan
Departure
Patient Disposition: Admit
Date of Disposition: 05/09/25
Time of Disposition: 22:15
Admit to: Med/Surg
Presentation/result/management discussed w/ accepting MD/DO: Hospitalist
Patient with high blood pressure during this ER visit?: No
Condition: Fair
Covid-19: Negative COVID-19
Discharge Problem:
Delirium, Fever
Prescriptions:
No Action
metoprolol succinate 50 mg tablet extended release 24 hr
25 mg PO HS
rosuvastatin 10 mg tablet
10 mg PO HS
Eliquis 5 mg tablet
5 mg PO BID
melatonin 5 mg Tablet
5 mg PO HS Qty: 0
metoprolol succinate [Toprol XL] 50 mg Tablet Extended Release 24 Hr
50 mg PO DAILY
Metamucil Packet
0.5 packet PO DAILY
cyanocobalamin (vitamin B-12) 1,000 mcg Tablet
1,000 mcg PO DAILY
Theragen Tablet
1 tab PO DAILY
Visbiome 112.5 billion cell Capsule
1 cap PO DAILY
Referrals:
Adam Piper MD [Family Provider, Internal Medicine]
Interventions
Interventions:
*Risk Screen - Suicide Last Done: 05/09/25 17:51
*General Assessment Last Done: 05/09/25 17:51
*Neglect/Abuse Screening Last Done: 05/09/25 17:51
*ED- Fall Risk Assessment Last Done: 05/09/25 17:51
*ED COVID-19 Vaccine History Last Done: 05/09/25 17:51
*ED Influenza Vaccine History Last Done: 05/09/25 17:51
ED- Pulmonary Assessment Last Done: 05/09/25 18:00
ED- Neurological Assessment Last Done: 05/09/25 18:00
ED- Cardiac Assessment Last Done: 05/09/25 18:00
ED Swallowing Screen Last Done: 05/09/25 18:00
Discharge Date and Time
Print Language: WELSH
[2025-05-09] MEDS: OFIRMEV 100 IV (18:59)
[2025-05-09] MEDS: NSS 1000 IV ×2 (18:59→23:40)
[2025-05-09 19:00] VITALS: BP 186/83
[2025-05-09 19:03] LABS: Urine Character Clear (Clear)
[2025-05-09 19:31] LABS: Urine Red Blood Cell 16-20 /HPF (0-2)
[2025-05-09 19:48] VITALS: BP 172/69
[2025-05-09 20:00] VITALS: BP 168/73
[2025-05-09] MEDS: ROCEPHIN 1000 MG IV (20:06)
[2025-05-09 21:00] VITALS: BP 145/44
--- NOTE | 2025-05-09 22:48 | HPS.HSE ---
Family Physician
-
Family Physician: Adam Piper
Chief Complaint
-
Altered mental status
History of Present Illness
This is a 89-year-old female with past medical history significant for paroxysmal atrial fibrillation on anticoagulation with Eliquis, hyperlipidemia, hypertension, presents to the emergency department after being found confused and lying in bed by
friends.
Patient usually alert and orient x 4 at baseline and is more confused today per friend. She forgot to go out to dinner with her friends and did not check with them. They went out to check on and found her in bed with no clothes on. She was alert
but not responding verbally. She was then brought to the emergency department by EMS. On arrival to the emergency department she had a fever to101.1
Son reports last known normal at 3 PM yesterday when he spoke to her on the phone. He had seen physically on Wednesday when she was in her usual state of health which she is alert and oriented x 4. She has ambulatory difficulties but otherwise was
able to carry on with usual activities of daily living. She had a bad day and spoke to several of her friends without any issues. She did not report any complaints to him.
He is unclear when she arose this morning or if she did wake up this morning. She has a pet but otherwise is mostly indoors and has not been exposed.
Son is not aware of any recent infections, antibiotics. She did not have any recent vaccinations.
In the emergency department she had a Tmax of 101.7. Blood pressure was 135/44 with a pulse of 72 and she is satting 98% on room air. Chest x-ray is mostly clear but a retrocardiac opacity cannot be ruled out on my review. ECG showed a sinus
rhythm at a rate of 71 with 4 degree AV block. She had a white count of 12.3 otherwise CBC was unremarkable. Electrolytes BUN/creatinine were all in normal range. LFTs were normal lipase was normal. UA was negative for UTI. COVID and flu test
were negative
A CT of the abdomen pelvis shows no evidence of urinary calculi, there was mild to moderate patchy parenchymal opacity within the lower lungs suggestive of atelectasis no focal consolidation�considered suggestive of pneumonia on the CT scan.
Gallbladder., No biliary abnormalities noted.. Fatty infiltration of the liver noted. Old L1 compression fracture.
Medical History
Past Medical History
Past Medical History: Reports Other
Additional Past Medical History:
atrial fibrillation
hypertension
hyperlipidemia
Past Surgical History: Reports Other
Additional Past Surgical History:
appendectomy (1955)
Social History
Tobacco: Non-smoker
Personal: Single
Living: Alone
Employment: Retired
Family History
Family History: Not pertinent
Allergies / Home Medications
Allergies reflects when Allergies were last updated in [employer].
Home Medications with original date entered in [employer]
Allergy/Medication List:
Allergies
Allergy/AdvReac Type Severity Reaction Status Date / Time
.iv contrast Allergy Itching Uncoded 05/08/24 10:36
Home Medications
Various Supplements 1 tab PO DAILY 05/08/24
apixaban 5 mg tablet (Eliquis) 5 mg PO BID 05/08/24
aspirin 81 mg tablet,delayed release 81 mg PO HS 05/08/24
metoprolol succinate 50 mg tablet,extended release 24 hr 50 mg PO HS 05/08/24
rosuvastatin 10 mg tablet 10 mg PO HS 05/08/24
venlafaxine 75 mg capsule,extended release 24 hr 75 mg PO DAILY 05/08/24
Review of Systems
-
Unable to obtain full review of systems at this time due to: Patient Non-verbal
Physical Exam
Vital Signs
Vital Signs
Temp Pulse Resp BP Pulse Ox
99.2 F 72 20 145/44 98
05/09/25 22:00 05/09/25 21:00 05/09/25 21:09 05/09/25 21:00 05/09/25 22:15
Physical Exam
General: No Apparent Distress and Other (Patient appears stated age and in no acute distress, she is noncommunicative at this time.)
HEENT: NormoCephalic, Moist mucous membranes, Atraumatic, PERRLA, Nose Appears Normal, Ears Appear Normal and Oxygen
Respiratory: Clear, Non Labored Respirations and Decreased Breath Sounds; No Wheezes, Rales, Rhonchi or Crackles
Cardiac: S1/S2 and Regular Rhythm; No Murmur, Rub or Gallop
Breast: Deferred by me
GI: Soft, Non Tender, Non Distended and Normal Bowel Sounds; No Organomegaly
Rectal: Deferred by Provider
Genito-urinary: Deferred by me
Musculoskeletal: No Clubbing, No Cyanosis, Edema, Left Lower Extremity (Left ankle edema) and Other (left lower extremity in splint with observed edema)
Skin: Warm, Dry and IV/Catheter Site; No Rash
Neuro: Other (arousable, yawns and returns to sleeping. She is able to follow very simple commands intermittently, however she has not been speaking yet. )
Hematologic/Lymphatic: No Lymphadenopathy
Laboratory Results
-
05/09/25 18:13
05/09/25 18:13
Laboratory Results
Lactic Acid Cancelled 05/09/25 22:15
Total Bilirubin 0.7 mg/dl (0.2-1.3) 05/09/25 18:13
AST 33 U/L (14-36) 05/09/25 18:13
ALT 24 U/L (0-35) 05/09/25 18:13
Alkaline Phosphatase 65 U/L (38-126) 05/09/25 18:13
Data Reviewed
-
Diagnostic Radiology: Image Personally Visualized and interpreted
CT Scan: Report Reviewed by me
Medical Tests (Nuc Med, Echo, EKG etc): Image Personally Visualized and interpreted
Lab Data: Labs Reviewed by me
Old Records: Reviewed
Impression/Plan
-
IMPRESSION:
89F w/ h/o paroxysmal atrial fibrillation on eliquis, presenting to ED with fever and altered mental status. She has sedated delirium. No medication insults. No focal deficits. With the fever this is more concerning for toxic metabolic
encephalopathy. Still febrile to 101.7 [address] tylenol. WBC 12. CT head unremarkable. Chest is clear with shallow breaths. Xray without obvious infiltrates and CT a/p also does not confirm any pneumonia (atelectasis suspected). No acute
intraabdominal findings. U/A is negative. Covid/Flu negative. Skin is without rash, joint swelling or erythema.
PLAN:
Fever - Patient is febrile, HD stable. Source unclear. Possibly viral. No recent vaccinations or abx.
- admit to telemetry (afib)
- blood cultures sent.
- obtain procalcitonin, ESR/CRP
- lyme titers
- IV ceftriaxone/doxycycline for now
- mrsa swab
- ID consultation
Paroxysmal atrial fibrillation
- continue eliquis when tolerating po
- continue metoprolol succinate with hold parameters
DVT PPX - on apixaban
Code status - DNR. D/W son who is the power of contract attorney and states clearly his mother does not want aggressive interventions anymore.
[2025-05-09 23:06] VITALS: BP 121/60
[2025-05-09 23:36] LABS: Procalcitonin < 0.05 ng/ml (0.0-0.25)
[2025-05-09] MEDS: TORADOL 15 MG IV (23:38)
[2025-05-09] MEDS: VIBRAMYCIN 260 MG IV (23:40)
[2025-05-10] VITALS (13 sets, daily range): BP systolic 104–144; BP diastolic 38–83; PULSE 84; O2SAT 95; BMI 25.3
--- NOTE | 2025-05-10 04:23 | PTCARENOTE ---
Pt arrived to unit via stretcher. Pt transferred from stretcher to bed. Pt oriented to room. Pt AAOx3, VSS. Call bejarano within reach, plan of care ongoing.
[2025-05-10 06:20] LABS: Hematocrit 37.8 % (37.0-47.0); Hemoglobin 12.4 g/dL (12.0-16.0); Mean Corp Hgb Conc. 32.8 g/dL (33.0-37.0); Mean Corpuscular Volume 95.7 fL (81.0-99.0); Platelet Count 235 10^3/uL (130-400); Red Cell Dist. Width 13.2 % (11.5-14.5)
[2025-05-10 06:43] LABS: Blood Urea Nitrogen 17 mg/dl (7-17); Calcium 8.5 mg/dl (8.4-10.2); Carbon Dioxide 25 mmol/L (22-30); Chloride 102 mmol/L (98-107); Estimated Creatinine Clearance 50 ml/min; Glucose 115 mg/dl (70-99); Magnesium 1.7 mg/dl (1.6-2.3); Potassium 3.4 mmol/L (3.5-5.1); Sodium 131 mmol/L (135-145); eGFR > 60.00
[2025-05-10] MEDS: TOPROL XL 50 MG PO (07:47)
[2025-05-10] MEDS: VISBIOME 1 CAP PO (07:48)
[2025-05-10] MEDS: THERAGRAN 1 TABLET PO (07:48)
[2025-05-10] MEDS: ELIQUIS 5 MG PO ×2 (07:48→20:39)
--- NOTE | 2025-05-10 08:04 | PTCARENOTE ---
Reached out to hospitalist regarding patients heart rate now a-fib, rates 90-130's. Blood pressures normal. Pt oriented, pleasant, resting in bed. Denies pain/sob/palpitations.
--- NOTE | 2025-05-10 08:13 | W.PN.HOSP.TC ---
Today's Communication/Plan
-
see bold
Assessment / Plan
Assessment / Plan
HPI: 89F w/ h/o paroxysmal atrial fibrillation on eliquis, presenting to ED with fever and altered mental status. She has sedated delirium. No medication insults. No focal deficits. With the fever this is more concerning for toxic metabolic
encephalopathy. Still febrile to 101.7 despite tylenol. WBC 12. CT head unremarkable. Chest is clear with shallow breaths. Xray without obvious infiltrates and CT a/p also does not confirm any pneumonia (atelectasis suspected). No acute
intraabdominal findings. U/A is negative. Covid/Flu negative. Skin is without rash, joint swelling or erythema.
#Fever
No infectious source identified, procalcitonin negative
Fever curve improved
Appreciate ID input, continue Rocephin, discontinue doxycycline
Trend fever and WBC
#Acute toxic metabolic encephalopathy
Resolved, patient is alert and awake today
Check B12, TSH with reflex T4
#Known atrial fibrillation with rapid ventricular response
Patient reports missing her metoprolol succinate last night, and took her metoprolol succinate late this morning
Given Cardizem 10 mg IV, and Cardizem 30 mg p.o. with conversion to normal sinus rhythm
Continue metoprolol succinate 50 mg daily, 25 mg at bedtime
Continue Eliquis for anticoagulation
#Hypokalemia
Replete, magnesium normal
#Hyponatremia
Monitor
#Hyperlipidemia
Continue statin
DVT prophylaxis�Eliquis
DNR
Total time spent to see the patient on the floor, examine the patient, review data and lab results, discuss treatment plan with patient, nursing staff around 52 minutes.
Called son and left message on 05/10
Physical Exam
General: No acute distress
HEENT: Normocephalic, Atraumatic, EOMI, MMM
Respiratory: Clear to Auscultation bilaterally
Cardiac: Normal S1/S2, tachycardic rate, irregularly irregular
GI: Soft, Nontender, Nondistended, Normal Bowel Sounds
Extremities: No Clubbing, Cyanosis, or Edema
Neuro: Nonfocal/Grossly Intact
Psych: Calm, Cooperative
Anticipated Discharge: > 48 hours
Subjective/Interval History
-
Date of Service: May 10, 2025
Notified by nursing staff the patient went to rapid atrial fibrillation this morning. She does report feeling that her heart rhythm is off. She denies chest pain, denies shortness of breath. Her confusion has resolved. She denies coughing,
denies dysuria. Fever curve improved.
Objective Data
-
Labs:
Laboratory Results
05/10/25
05:52
WBC 8.6
Hgb 12.4
Hct 37.8
Plt Count 235
Sodium 131 L
Potassium 3.4 L
Chloride 102
Carbon Dioxide 25
BUN 17
Creatinine 0.6
Glucose 115 H
Calcium 8.5
Vital Signs:
Vital Signs
Temp Pulse Resp BP Pulse Ox
98.1 F 97 16 141/73 94
05/10/25 07:46 05/10/25 07:46 05/10/25 07:46 05/10/25 07:46 05/10/25 07:46
I&O
05/09/25 05/10/25 05/11/25
06:59 06:59 06:59
Intake Total 480 / 480
Balance 480 / 480
[2025-05-10] MEDS: CARDIZEM 10 MG IV (08:21)
--- NOTE | 2025-05-10 10:13 | CON.ID ---
Consultation
-
Date/Time Consultation Requested: 05/10/2025 0237
Date/Time Consultation Performed: 05/10/2025 1000
Requesting Provider: Dr. José
Performing Provider: Dr. Robbins
Reason for Consultation: Fever
Chief Complaint / Past History
History of Present Illness
Tamar Howard is an 89-year-old female with a significant past medical history of A-fib (on Eliquis) and hypertension being evaluated at the request of Dr. José regarding fever. History is obtained from chart review, along with patient
interview.
The patient presented to [facility] ER yesterday afternoon for evaluation of new onset confusion and change in mental status. The patient resides in independent living at [facility], and the day before had spoken by phone to her son and
she seemed okay. Later, staff had checked in on her, and according to EMS report was found unclothed in her bed, covered in urine and was 'warm to the touch'. She was brought in emergently to the hospital where she was found to be febrile and with
leukocytosis. She was started on empiric antibiotics.
Today, she reports that she does not recall any of those events. She denies any recent headache, chest pain, cough or congestion. She denies any recent abdominal pain, nausea or vomiting. She denies any dysuria or hematuria. She notes no sick
contacts.
Past History
Additional Past Medical History:
P A-fib (Eliquis)
HTN
HLD
Past Surgical History: Appendectomy
Allergy History:
Iodinated Contrast Media Allergy (Verified 05/08/24 18:08)
IV CONTRAST -ITCHING
Medications Reviewed: Yes
Current Antibiotics:
Ceftriaxone
Doxycycline
Social History
Tobacco: Non-Smoker
Alcohol: None
Drug: None
Personal: Single
Living: Alone (Independent living at [facility])
Employment: Retired
Family History
Family History: Not Pertinent
Review of Systems
Vital Signs
Temp Pulse Resp BP Pulse Ox
98.1 F 99 20 127/81 93
05/10/25 07:46 05/10/25 09:23 05/10/25 08:15 05/10/25 09:23 05/10/25 08:15
Physical Exam
Physical Exam
Constitutional: No Acute Distress, Comfortable and Non-toxic
Head: Normocephalic
Eyes: Pupils Equal, Pupils Round, No Conjunctival Hemorrhage and Sclera Anicteric
Oral: No Thrush and No Ulcers
Cardiovascular: Irregular Rate and S1/S2; Negative S3/S4
Pulmonary: Clear; Negative Wheezes, Rales or Rhonchi
Gastrointestinal: Soft, Non Tender, Non Distended, Normal Bowel Sounds, No Rebound and No Guarding
Extremities: Negative Edema, Cyanosis or Erythema
Musculoskeletal: Negative Joint Swelling or Joint Effusion
Neurological: Awake and Alert
Psychological: Calm
Lab / Diagnostic Study Results
05/10/25 05:52
05/10/25 05:52
Abs Immat Gran (auto) 0.1 10^3/uL (0-0.05) H 05/09/25 18:13
Absolute Neuts (auto) 10.8 10^3/uL (1.4-6.5) H 05/09/25 18:13
Absolute Lymphs (auto) 0.9 10^3/uL (1.2-3.4) L 05/09/25 18:13
Absolute Monos (auto) 0.5 10^3/uL (0.1-0.6) 05/09/25 18:13
Absolute Basos (auto) 0.0 10^3/uL (0-0.2) 05/09/25 18:13
Immature Gran % 0.4 % (0-0.5) 05/09/25 18:13
Neutrophils % 87.9 % (42.2-75.2) H 05/09/25 18:13
Lymphocytes % 7.2 % (20.5-51.1) L 05/09/25 18:13
Monocytes % 4.2 % (1.7-9.3) 05/09/25 18:13
Eosinophils % 0.1 % (0-6) 05/09/25 18:13
Basophils % 0.2 % (0-2) 05/09/25 18:13
Lactic Acid Cancelled 05/09/25 22:15
Procalcitonin < 0.05 ng/ml (0.0-0.25) 05/09/25 23:03
Ur Squamous Epith Cells 3-5 /LPF (Few) 05/09/25 18:13
Microbiology Results
Micro:
05/10/25 03:40 MRSA Screen - Pending
Nose
05/09/25 20:06 Blood Culture - Pending
Blood/Venous
05/09/25 18:13 Urine Culture - Pending
Urine
05/09/25 18:14 Influenza Types A & B (MICHAEL) - Final
Nasal Swab Negative for Influenza A & B, NAAT
Negative results must be combined with clinical observations
and patient history.
Nucleic Acid Amplification test (NAAT)performed on the
[employer] platform.
05/09/25 18:13 Blood Culture - Pending
Blood/Venous
Imaging:
05/09/2025 CT abdomen/pelvis without contrast: no evidence for urinary tract calculi. No significant abnormality of unenhanced kidney or bladder. Mild to moderate patchy parenchymal opacity within the lower lungs with an appearance highly
suggestive of atelectasis. Mild to moderate compression deformity of L1 mainly involving the left side of the vertebral body. Please see full dictation for additional detail.
05/09/2025 CT head without contrast: no evidence of acute intracranial abnormality.
05/09/2025 CXR (portable): bilateral calcified pleural plaques suggesting previous asbestos exposure. No radiographic evidence for vascular congestion. No noted consolidation. Please see full dictation for additional detail. Film personally
viewed.
Assessment / Plan
Acute encephalopathy
Fever
Leukocytosis
Hyponatremia
P A-fib (Eliquis)
HTN
HLD
Recommendations:
Etiology of prior encephalopathy not clear. At this point in time cultures remain negative, and patient appears back to baseline. Additionally, fevers have improved and leukocytosis has likewise improved.
Will continue with empiric ceftriaxone for the present.
Discontinue further doxycycline for now.
Follow pending cultures.
Follow mental status.
Trend white count and temperature curve.
Further recommendations as additional data is returned.
[2025-05-10] MEDS: CARDIZEM 30 MG PO (10:16)
[2025-05-10] MEDS: CARDIZEM PO (14:30)
[2025-05-10] MEDS: KCL 20 MEQ PO (15:28)
--- NOTE | 2025-05-10 15:42 | CM ---
Patient seen at bedside
IA completed
Lives at [facility] [place] apartment, no steps
PLOF: Independent with walker
DME: [facility]
PT rec home health-patient prefers [facility]-referral placed in [facility]
Denies VN in past/has been at [facility] last year
PCP: Dr. Piper
Pharmacy: [facility]
PLAN: Home with [facility] home health when stable
[facility] home health fax #: [phone]
states son will transport when dc
[2025-05-10] MEDS: ROCEPHIN 1000 MG IV (20:39)
[2025-05-10] MEDS: STERILE WATER FOR INJECTION 10 ML IV (20:39)
[2025-05-10] MEDS: CRESTOR 10 MG PO (21:04)
[2025-05-10] MEDS: TOPROL XL 25 MG PO (21:05)
[2025-05-11 04:18] VITALS: BP 153/71
[2025-05-11 06:12] LABS: Hematocrit 38.7 % (37.0-47.0); Hemoglobin 12.2 g/dL (12.0-16.0); Mean Corp Hgb Conc. 31.5 g/dL (33.0-37.0); Mean Corpuscular Volume 96.0 fL (81.0-99.0); Platelet Count 213 10^3/uL (130-400); Red Cell Dist. Width 13.5 % (11.5-14.5)
[2025-05-11 06:37] LABS: Blood Urea Nitrogen 21 mg/dl (7-17); Calcium 8.9 mg/dl (8.4-10.2); Carbon Dioxide 25 mmol/L (22-30); Chloride 107 mmol/L (98-107); Estimated Creatinine Clearance 43 ml/min; Glucose 157 mg/dl (70-99); Potassium 3.7 mmol/L (3.5-5.1); Sodium 136 mmol/L (135-145); eGFR > 60.00
[2025-05-11 07:27] LABS: Vitamin B12 403 pg/ml (239-931)
[2025-05-11 07:32] VITALS: BP 151/56
[2025-05-11] MEDS: THERAGRAN 1 TABLET PO (08:00)
[2025-05-11] MEDS: ELIQUIS 5 MG PO (08:00)
[2025-05-11] MEDS: TOPROL XL 50 MG PO (08:00)
[2025-05-11] MEDS: VISBIOME 1 CAP PO (08:00)
--- NOTE | 2025-05-11 08:37 | W.PN.HOSP.TC ---
Today's Communication/Plan
-
Cleared by ID for discharge today
Assessment / Plan
Assessment / Plan
HPI: 89F w/ h/o paroxysmal atrial fibrillation on eliquis, presenting to ED with fever and altered mental status. She has sedated delirium. No medication insults. No focal deficits. With the fever this is more concerning for toxic metabolic
encephalopathy. Still febrile to 101.7 despite tylenol. WBC 12. CT head unremarkable. Chest is clear with shallow breaths. Xray without obvious infiltrates and CT a/p also does not confirm any pneumonia (atelectasis suspected). No acute
intraabdominal findings. U/A is negative. Covid/Flu negative. Skin is without rash, joint swelling or erythema.
#Fever
No infectious source identified, procalcitonin negative
Fever curve improved, doxycycline discontinued 05/10
Appreciate ID input, fever resolved on IV Rocephin
Medically stable and cleared by ID for discharge on cefdinir 300 mg twice a day for 5 more days
Trend fever and WBC
#Acute toxic metabolic encephalopathy
Resolved, patient is alert and awake today
B12 normal
TSH mildly elevated at 5.67, free T4 normal, will not treat at this point
#Known atrial fibrillation with rapid ventricular response
Patient reports missing her metoprolol succinate last night, and took her metoprolol succinate late this morning
Patient converted to normal sinus rhythm status post Cardizem 10 mg IV and Cardizem 30 mg p.o.
Continue metoprolol succinate 25 mg daily, 50 mg HS (reports this is how she takes it at home due to tremors)
Continue Eliquis for anticoagulation
#Hypokalemia
Repleted and resolved
#Hyponatremia
Resolved
#Hyperlipidemia
Continue statin
DVT prophylaxis�Eliquis
DNR
Updated son on phone 05/11
Physical Exam
General: No acute distress
HEENT: Normocephalic, Atraumatic, EOMI, MMM
Respiratory: Clear to Auscultation bilaterally
Cardiac: Normal S1/S2, tachycardic rate, irregularly irregular
GI: Soft, Nontender, Nondistended, Normal Bowel Sounds
Extremities: No Clubbing, Cyanosis, or Edema
Neuro: Nonfocal/Grossly Intact
Anticipated Discharge: Today
Subjective/Interval History
-
Date of Service: May 11, 2025
No recurrence of fever. Patient continues to be clear and lucid today. She reports the feeling of her heartbeat being irregular has resolved. She denies chest pain, denies shortness of breath. No coughing, no vomiting, no abdominal pain, no
dysuria. She is eager for discharge today.
Objective Data
-
Labs:
Laboratory Results
05/11/25
06:02
WBC 6.6
Hgb 12.2
Hct 38.7
Plt Count 213
Sodium 136
Potassium 3.7
Chloride 107
Carbon Dioxide 25
BUN 21 H
Creatinine 0.7
Glucose 157 H
Calcium 8.9
Vital Signs:
Vital Signs
Temp Pulse Resp BP Pulse Ox
98.5 F 65 16 151/56 94
05/11/25 07:32 05/11/25 07:32 05/11/25 07:32 05/11/25 07:32 05/11/25 07:32
I&O
05/10/25 05/11/25 05/12/25
06:59 06:59 06:59
Intake Total 480 / 480 1040 / 1040
Balance 480 / 480 1040 / 1040
--- NOTE | 2025-05-11 10:53 | W.PN.ID1 ---
Date of Service
Date of Service: May 11, 2025
Today's Communication
Transition to cefdinir
Assessment / Plan
Acute encephalopathy
Fever
Leukocytosis
Hyponatremia
P A-fib (Eliquis)
HTN
HLD
Recommendations:
Etiology of prior encephalopathy not clear. At this point in time cultures remain negative, and patient appears back to cognitive baseline. Additionally, fevers and leukocytosis have resolved.
Discontinue ceftriaxone and transition to oral cefdinir for an additional 5 days.
����������������������������������������������������������
Chief Complaint
-: Fever and Other (Encephalopathy)
Subjective / Review of Systems
Patient seen and examined. Reports feeling well today. Denies fevers or chills. Denies dysuria.
Vital Signs / Physical Exam
Vital Signs
Vital Signs
Temp Pulse Resp BP Pulse Ox
98.5 F 65 16 151/56 94
05/11/25 07:32 05/11/25 07:32 05/11/25 07:32 05/11/25 07:32 05/11/25 07:32
Physical Exam
Constitutional: No Acute Distress, Comfortable and Non-toxic
Eyes: Sclera Anicteric
Cardiovascular: S1/S2; Negative S3/S4
Pulmonary: Non Labored
Gastrointestinal: Soft, Non Tender and Non Distended
Skin: Warm and Dry; Negative Rash or Jaundice
Neurological: Awake and Alert
Psychological: Calm
Objective Data
Lab Data
Lab Results
05/11/25 06:02
05/11/25 06:02
Estimated Creat Clear 43 ml/min 05/11/25 06:02
Lactic Acid Cancelled 05/09/25 22:15
Total Bilirubin 0.7 mg/dl (0.2-1.3) 05/09/25 18:13
AST 33 U/L (14-36) 05/09/25 18:13
ALT 24 U/L (0-35) 05/09/25 18:13
Alkaline Phosphatase 65 U/L (38-126) 05/09/25 18:13
Most recent labs reviewed.
Micro Results:
05/10/25 03:40 MRSA Screen - Final
Nose No Methicillin Resistant Staphylococcus aureus isolated.
05/09/25 20:06 Blood Culture - Preliminary
Blood/Venous No Growth in 24 hours- Final report to follow
05/09/25 18:13 Blood Culture - Preliminary
Blood/Venous No Growth in 24 hours- Final report to follow
05/09/25 18:13 Urine Culture - Final
Urine NO GROWTH
05/09/25 18:14 Influenza Types A & B (MICHAEL) - Final
Nasal Swab Negative for Influenza A & B, NAAT
Negative results must be combined with clinical observations
and patient history.
Nucleic Acid Amplification test (NAAT)performed on the
[employer] platform.
Imaging:
05/09/2025 CT abdomen/pelvis without contrast: no evidence for urinary tract calculi. No significant abnormality of unenhanced kidney or bladder. Mild to moderate patchy parenchymal opacity within the lower lungs with an appearance highly
suggestive of atelectasis. Mild to moderate compression deformity of L1 mainly involving the left side of the vertebral body. Please see full dictation for additional detail.
05/09/2025 CT head without contrast: no evidence of acute intracranial abnormality.
05/09/2025 CXR (portable): bilateral calcified pleural plaques suggesting previous asbestos exposure. No radiographic evidence for vascular congestion. No noted consolidation. Please see full dictation for additional detail. Film personally
viewed.
Chest X-Ray: Image Reviewed and Report Reviewed
CT Scan: Image Reviewed and Report Reviewed
Care Review
Plan reviewed with: Physician (Hospitalist)
[2025-05-11 11:34] VITALS: BP 172/74
--- NOTE | 2025-05-11 11:34 | W.DCSUMMARY ---
Discharge Summary
Discharge Data
Date of Admission: 05/09/25
Date of Discharge: 05/11/25
-
Pending Results: No
Hospital Course
Discharge diagnosis:
Fever of unknown origin
Acute toxic metabolic encephalopathy
Atrial fibrillation with rapid ventricular response
Hypokalemia
Hyponatremia
Hyperlipidemia
Consults: ID
Hospital course:
89-year-old female with a past medical history of atrial fibrillation on Eliquis, hyperlipidemia, and hypertension who was found confused and lying in bed by friends. Patient was found to have a fever. She was treated with IV antibiotics. She was
seen in conjunction with ID. No infectious source was identified. Her fever resolved, and her mentation returned to baseline. ID recommends discharge on cefdinir 300 mg twice a day for 5 more days.
Patient's hospital course was complicated by rapid atrial fibrillation. She has known atrial fibrillation, and reports missing her evening dose of metoprolol succinate. She received her morning dose of metoprolol succinate. She was also treated
with IV diltiazem as well as oral diltiazem. She converted to normal sinus rhythm. She is medically stable for discharge. She needs to follow-up with her PCP in 1 week.
Disposition: Home with home care
Discharge planning: Required 38 minutes
Discharge Plan
-
Patient Disposition: Home with Home Care
Discharge Diagnosis/Procedures: Fever of unknown origin, confusion, atrial fibrillation with rapid ventricular response
Condition: Good
Diet: Low Fat and Low Cholesterol
Activity: As tolerated
Driving Restrictions: As prior to admission
Other Services: VN and PT
Activity Restrictions/Additional Instructions:
You had fever of unknown origin, that likely caused your confusion/nonresponsiveness.
No infection was identified.
Your fever and confusion resolved with IV antibiotics, and the infection doctor recommends you taking cefdinir 300 mg twice a day for 5 more days.
Please follow-up with your primary care provider in 1 week.
Referrals:
Adam Piper MD [Family Provider, Internal Medicine] - in one week
Prescriptions:
New
acetaminophen 325 mg Tablet
650 mg PO Q4HPRN PRN (Reason: mild pain/PENALOZA/temp> 100.4F) Qty: 0 0RF
cefdinir 300 mg Capsule
300 mg PO Q12 5 Days Qty: 10 0RF
Continued
rosuvastatin 10 mg tablet
10 mg PO HS
Eliquis 5 mg tablet
5 mg PO BID
melatonin 5 mg Tablet
5 mg PO HS Qty: 0
psyllium Packet
0.5 packet PO DAILY
cyanocobalamin (vitamin B-12) 1,000 mcg Tablet
1,000 mcg PO DAILY
therapeutic multivitamin Tablet
1 tab PO DAILY
Visbiome 112.5 billion cell Capsule
1 cap PO DAILY
Changed
metoprolol succinate 50 mg tablet extended release 24 hr
25 mg PO DAILY Qty: 0 0RF
metoprolol succinate [Toprol XL] 50 mg Tablet Extended Release 24 Hr
50 mg PO HS Qty: 0 0RF
Discharge Orders:
Discharge Patient (As Directed); Ordered 05/11/25
Ordered By: Benjamin Clark
Discharge Date and Time
Discharge Date/Time: 05/11/25 13:35
Print Language: BANGLADESHI
--- NOTE | 2025-05-11 12:03 | CM ---
patient seen at bedside
DISCHARGE today
IMM explained & signed
CM Consult completed
REFERRAL IN [facility] [place]
PLAN: Home with [email or web address] fax #: [phone]
states son will transport
== END 2025-05-11 13:35 | disposition home health service (06) | DRG 640 ==
LOC: 3 WEST ACU 23:35
PROVIDERS: ADMITTING PHYSICIAN Internal Medicine; ATTENDING PHYSICIAN Family Medicine; CONSULT PHYSICIAN Internal Medicine Infectious Disease; EMERGENCY PHYSICIAN Emergency Medicine; FAMILY PHYSICIAN Internal Medicine Geriatric Medicine
DX: E87.1 Hypo-osmolality and hyponatremia (principal); G92.8 Other toxic encephalopathy; Z11.52 Encounter for screening for COVID-19; I48.0 Paroxysmal atrial fibrillation; I10 Essential (primary) hypertension; E78.5 Hyperlipidemia, unspecified; Z79.01 Long term (current) use of anticoagulants; E87.6 Hypokalemia; Z66 Do not resuscitate
CPT/HCPCS: 70450; 71045; 74176; 80048; 80053; 81003; 81015; 82550; 82607; 83605; 83735; 84145; 84439; 84443; 85025; 85027; 87040; 87070; 87086; 87502; 87811; 93005; 96361; 96374; 97163; 97167; 99285